=== PATIENT | male | born 1985 | race Two or more races ===

== ENCOUNTER 2020-02-15 22:47 | Inpatient (IN) | payer OTHER, SELFPAY ==
[~2020-02-15] VITALS: Ht 162.6 cm; Wt 56.7 kg
--- NOTE | 2020-02-15 22:56 | NUR ---
PT BIBS C/O DIFFICULTY SWALLOWING S/P EATING A PEICE OF CHICKEN, PER PT " I FEEL LIKE ITS STUCK", TO ER BED 9 VITALS STABLE.
[2020-02-15] MEDS ORDERED: GLUCAGON,HUMAN RECOMBINANT 1 MG/VIAL VIAL IV ONE (23:00)
[2020-02-15] MEDS ORDERED: METOCLOPRAMIDE HCL 10 MG/2 ML VIAL IV ONE (23:00)
[2020-02-15] MEDS ORDERED: GLUCAGON,HUMAN RECOMBINANT 1 MG/VIAL VIAL ONE (23:01)
[2020-02-15] MEDS ORDERED: METOCLOPRAMIDE HCL 10 MG/2 ML VIAL ONE (23:02)
[2020-02-15 23:27] LABS: BASOPHILS % (AUTO) 0.4 % (0.0-2.0); HEMATOCRIT 44 % (39-51); HEMOGLOBIN 14.9 g/dL (13.5-17.5); LYMPHOCYTES # (AUTO) 2.7 /CMM (0.8-4.8); LYMPHOCYTES % (AUTO) 38.9 % (20.0-44.0); MEAN CORPUSCULAR HGB CONC 34 g/dl (31.0-36.0); MEAN CORPUSCULAR VOLUME 87 fL (80-96); MONOCYTES # (AUTO) 0.5 /CMM (0.1-1.30); MONOCYTES % (AUTO) 6.9 % (2.0-12.0); NEUTROPHILS # (AUTO) 3.5 /CMM (1.8-8.9); NEUTROPHILS % (AUTO) 51.8 % (43.0-81.0); PLATELET COUNT (AUTO) 220 /CMM (150-450); WHITE BLOOD COUNT (AUTO) 6.8 K/uL (4.3-11.0)
[2020-02-15 23:41] LABS: BILIRUBIN,DIRECT 0.2 mg/dL (0.0-0.2); BILIRUBIN,TOTAL 0.6 mg/dL (0.2-1.0); CALCIUM, SERUM 9.8 mg/dL (8.5-10.1); CREATININE 0.9 mg/dL (0.6-1.3); POTASSIUM 3.5 mmol/L (3.5-5.1); TOTAL PROTEIN, SERUM 9.2 g/dL (6.4-8.2)
--- NOTE | 2020-02-16 00:03 | NUR ---
PT UNABLE TO TOLERATE SWALLOWING 30ML WATER. MD AWARE
--- NOTE | 2020-02-16 00:41 | NUR ---
BED ASSIGNMENT 306-2
[2020-02-16] MEDS ORDERED: IV D5/0.45 NACL 1,000 ML IV PRN (00:46)
[2020-02-16] MEDS ORDERED: ONDANSETRON HCL/PF 4 MG/2 ML VIAL IVP PRN (01:00)
[2020-02-16] MEDS ORDERED: MORPHINE SULFATE INJ 2 MG/ML DISP.SYRIN IV PRN (01:00)
[2020-02-16 01:35] VITALS: BP 113/67
--- NOTE | 2020-02-16 01:35 | NUR ---
MS FISCAL TECHNICIAN NOTE RECEIVED PATIENT VIA GURNEY. AMBULATED TO BED WITH STEADY GAIT. A/OX4. TOLERATING ROOM AIR. RESPIRATIONS ARE EVEN AND UNLABORED. NO S/S SOB NOTED. NO C/O PAIN AT THIS TIME. IN NO APPARENT DISTRESS. IV ACCES IN RAC#20 PATENT AND SALINE LOCKED. INATAL PHYSICAL ASSESSMENT COMPLETED AT THIS TIME. SKIN ASSESSMENT COMPLETED, SKIN INTACT. EVENT MARKETING ASSISTANT OBTAINED VITALS SIGNS AND COMPLETED BELONGINGS LIST. INFORMED PATIENT OF NPO STATUS, PATIENT UNDERSTAND AND ACKNOWLEDGES. SIGN HAS BEEN PLACES AT DOORWAY. BED IS LOW AND LOCKED, HOB ELEVATED IN SEMI HERNANDEZ,S SIDE RIALS UP X2. ABDELRAHMAN LIGHT WITHIN REACH. WILL CONTINUE TO MONITOR.
--- NOTE | 2020-02-16 06:53 | NUR ---
MS RN CLOSING NOTE PATIENT. A/OX4. TOLERATING ROOM AIR. RESPIRATIONS ARE EVEN AND UNLABORED. NO RESPIRATORY DISTRESS. NO C/O PAIN. NO DISTRESS. IV ACCES MAINTAINED IN RAC#20 RUNNING D51/2NS@75ML/HR . BED REMAINS LOW AND LOCKED, HOB ELEVATED IN SEMI HERNANDEZ,S SIDE RIALS UP X2. CALL LIGHT WITHIN REACH. WILL ENDORSE TO NEXT SHIFT.
[2020-02-16 06:58] LABS: BASOPHILS # (AUTO) 0.3 /CMM (0.0-0.2); BASOPHILS % (AUTO) 2.8 % (0.0-2.0); EOSINOPHILS % (AUTO) 0.3 % (0.0-6.0); HEMATOCRIT 41 % (39-51); HEMOGLOBIN 13.5 g/dL (13.5-17.5); LYMPHOCYTES # (AUTO) 1.5 /CMM (0.8-4.8); LYMPHOCYTES % (AUTO) 16.1 % (20.0-44.0); MEAN CORPUSCULAR HGB CONC 33 g/dl (31.0-36.0); MEAN CORPUSCULAR VOLUME 87 fL (80-96); MONOCYTES # (AUTO) 0.3 /CMM (0.1-1.30); MONOCYTES % (AUTO) 3.7 % (2.0-12.0); NEUTROPHILS # (AUTO) 7.1 /CMM (1.8-8.9); NEUTROPHILS % (AUTO) 77.1 % (43.0-81.0); PLATELET COUNT (AUTO) 197 /CMM (150-450); RED BLOOD CELL COUNT(AUTO) 4.67 MIL/uL (4.5-6.0); WHITE BLOOD COUNT (AUTO) 9.2 K/uL (4.3-11.0)
[2020-02-16 07:28] LABS: THYROID STIMULATING HORMONE 1.916 uIU/mL (0.358-3.74)
[2020-02-16 07:31] LABS: BILIRUBIN,TOTAL 0.5 mg/dL (0.2-1.0); CREATININE 0.8 mg/dL (0.6-1.3); MAGNESIUM 2.2 mg/dL (1.8-2.4); PHOSPHORUS 4.5 mg/dL (2.5-4.9); POTASSIUM 3.8 mmol/L (3.5-5.1); TOTAL PROTEIN, SERUM 7.5 g/dL (6.4-8.2)
--- NOTE | 2020-02-16 07:35 | NUR ---
MS RN NOTES RECEIVED PT IN BED, ASLEEP, APPEARS CALM, A/O X3. PT TOLERATING RA, WITH NO ACUTE RESPIRATORY DISTRESS NOTED. PT DENIES ANY PAIN OR DISCOMFORT AT THE TIME. IVF D5 1/2 NS AT 75ML/HR TO RAC G20, INTACT AND OPERATIONAL. PT KEPT COMFORTABLE IN BED. CALL LIGHT KEPT WITHIN REACH. PT'S BED IN LOWEST, LOCKED POSITION WITH SR X3. WILL CONTINUE PLAN OF CARE.
[2020-02-16 08:00] VITALS: BP 113/65
--- NOTE | 2020-02-16 10:38 | NUR ---
MS RN NOTES SEEN AND EVALUATED BY DR. MARRERO. ORDERED TO DO SIPS OF WATER AT BEDSIDE FROM NURSING. PT ABLE TO TOLERATE SIPS OF WATER WITH NO DIFFICULTY OR DISCOMFORT ON SWALLOWING. MD/ED ORDERED STAT ESOPHAGRAM WITH GASTROGRAFIN, BEFORE ORDERING MEAL FOR LUNCH AND PT MAY BE ABLE TO HOME HOME IF IT COMES NEGATIVE. CHARGE NURSE/LISSET MADE AWARE WELL. WILL CONTINUE TO MONITOR.
[2020-02-16] MEDS ORDERED: DIATR MEGLU/DIATRIZOATE SODIUM 120 ML BOTTLE (GASTROGRAPHIN) ONE (11:22)
--- NOTE | 2020-02-16 11:55 | NUR ---
MS RN NOTES PT JUST CAME BACK FROM XR ESOPHAGRAM. PT KEPT COMFORTABLE IN BED. NO DISCOMFORT REPORTED. WILL CONTINUE TO MONITOR. AWAITING FOR RESULTS.
--- NOTE | 2020-02-16 13:30 | NUR ---
MS RN NOTES RECEIVED FINAL RESULT OF ESOPHAGRAM, RELAYED TO DR. MARRERO. ORDERED DIET PLACED. AND POSSIBLE FOR DISCHARGE IF PT TOLERATES CLEAR LIQUID. AND FOLLOW UP OUTPATIENT WITH DR. STAUFFER. PT MADE THRASHER.
--- NOTE | 2020-02-16 14:00 | NUR ---
MS RN NOTES PT ABLE TO TOLERATE CLEAR LIQUIDS. NO DISCOMFORT.
--- NOTE | 2020-02-16 15:30 | NUR ---
MS RN NOTES PT AWAKE, A/O X3-5. PT TOLERATING RA, WITH NO ACUTE RESPIRATORY DISTRESS NOTED. PT DENIES ANY PAIN OR DISCOMFORT THE TIME OF DISCHARGE. PIV TO RAC G20, REMOVED AND APPLIED DRY DRESSING.ALL NEEDS AND CARE ATTENDED. PT REVIEWED AND SIGNED DISCHARGE INSTRUCTIONS AND INVENTORY LIST. SKIN INTACT. ALL BELONGINGS WITH THE PT. VITALS STABLE AND RECORDED. PT ESCORTED TO THE [facility], AMBULATORY WITH THE LOTTERY OFFICE MANAGER. PT LFT THE UNIT AT 1530. MD/ED AND CN/LISSET AWARE OF DISCHARGE.
== END 2020-02-16 15:30 | disposition home or self-care (01) | DRG 395 ==
LOC: ER 22:50 → MED 02-16 00:49
PROVIDERS: ADMIT Internal Medicine; ATTEND Internal Medicine
DX: T18.128A Food in esophagus causing other injury, initial encounter (principal); X58.XXXA Exposure to other specified factors, initial encounter; Y92.009 Unspecified place in unspecified non-institutional (private) residence as the place of occurrence of the external cause; R13.10 Dysphagia, unspecified
CPT/HCPCS: 36415; 70360-TC; 71045-TC; 74230-TC; 80048-TC; 80053-TC; 80061-TC; 80076-TC; 83735-TC; 84100-TC; 84443-TC; 85025-TC; 85730-TC; 87081-TC; G0378; J1610; J2765; J3490; J7030; Q9963